=== PATIENT | male | born 1970 | race Caucasian/White ===

== ENCOUNTER 2018-01-24 02:12 | Emergency (ER) | payer MEDICAID, OTHER ==
[2018-01-24 02:46] VITALS: BP 211/109
[2018-01-24] MEDS ORDERED: Acetaminophen/oxyCODONE 325-5 MG Tab PO ONE (02:46)
[2018-01-24] MEDS ORDERED: Clindamycin HCl 150 MG Cap PO ONE (02:46)
--- NOTE | 2018-01-24 02:51 | EDM.PDOC ---
ED HPI GENERAL MEDICAL PROBLEM - General Chief Complaint: ENT Problem Stated Complaint: TOOTHACHE Time Seen by Provider: 01/24/18 02:41 Source of Information: Reports: Patient History Limitations: Reports: No Limitations - History of Present Illness INITIAL COMMENTS - FREE TEXT/NARRATIVE: 47-year-old male attends the ED with severe dental pain gradually worsening over the last week. Currently pain is constant throbbing and pulsating. It radiates towards his right ear down the right side of his throat. Patient states he has multiple dental caries and has had a plenty of his teeth removed almost all of his molars are gone. Current pain is coming from a right upper first bicuspid tooth. No associated fever or chills. Onset: Gradual Onset Date: 01/17/18 Duration: Day(s):, Getting Worse, Waxing/Waning (Initially pain was waxing and waning but now is constant.) Location: Reports: Face (Dental infection) Quality: Reports: Ache, Throbbing, Other Severity: Severe (Pulsation 9 on a 10) Improves with: Reports: Other (He gets relief by swishing water around the tooth every 2-3 minutes.) Worsens with: Reports: None Context: Denies: Activity, Exercise, Lifting, Sick Contact, Trauma, Other Associated Symptoms: Reports: Cough (From smoking) Treatments TEST SPECIALIST: Reports: Acetaminophen, NSAIDS (Motrin.) - Related Data Allergies Allergy/AdvReac Type Severity Reaction Status Date / Time shellfish Allergy Severe Hives Uncoded 01/24/18 02:42 Home Meds: Home Meds Latanoprost [Xalatan 0.005% Ophth Soln] 1 drop EYEBOTH DAILY 03/29/14 [History] Lisinopril 20 mg PO DAILY 03/29/14 [History] metFORMIN HCl [Metformin HCl] 500 mg PO DAILY 03/29/14 [History] Acetaminophen [Tylenol] 650 mg PO Q4H PRN #100 tablet 04/02/14 [Rx] Docusate Sodium [Colace] 100 mg PO BID PRN #60 cap 04/02/14 [Rx] Ibuprofen [Motrin] 400 mg PO Q6H PRN #100 tablet 04/02/14 [Rx] oxyCODONE 5 mg PO Q4H PRN #60 tablet 04/02/14 [Rx] Clindamycin HCl 300 mg PO TID #24 capsule 01/24/18 [Rx] oxyCODONE HCl/Acetaminophen [Percocet 5-325 mg Tablet] 1 - 2 each PO Q4H PRN # 16 tablet 01/24/18 [Rx] Past Medical History HEENT History: Reports: Glaucoma (Currently using eyedrops for this.) Cardiovascular History: Reports: High Cholesterol Gastrointestinal History: Reports: Chronic Constipation Genitourinary History: Reports: None Musculoskeletal History: Reports: Back Pain, Chronic (Currently disabled because of chronic back pain) Endocrine/Metabolic History: Reports: Diabetes, Type II (Controlled with diet and metformin.) Social & Family History - Living Situation & Occupation Living situation: Reports: , Alone Occupation: Disabled ED ROS ENT - Review of Systems Review Of Systems: See Below Constitutional: Reports: Malaise, Weakness, Fatigue (From not being able to sleep.). Denies: Fever, Chills HEENT: Reports: Ear Pain (Ear pain referred from dental pain. Right side), Glasses, Throat Pain (Pain radiates down the right side of his throat at times) . Denies: Hearing Loss, Rhinitis, Sinus Problem Respiratory: Reports: Shortness of Breath, Wheezing (On exertion), Cough ( occasional wheezing) Cardiovascular: Reports: No Symptoms ( productive cough at times ), Blood Pressure Problem (No blood pressure today is 211/109 at rest he states it's usually not this high.). Denies: Chest Pain, Claudication, Orthopnea Endocrine: Reports: Fatigue GI/Abdominal: Reports: No Symptoms : Reports: No Symptoms Musculoskeletal: Reports: Back Pain (Disabling back pain) Skin: Reports: No Symptoms Neurological: Reports: No Symptoms Psychiatric: Reports: No Symptoms Hematologic/Lymphatic: Reports: No Symptoms Immunologic: Reports: No Symptoms ED EXAM, ENT - Physical Exam Exam: See Below Exam Limited By: No Limitations General Appearance: Alert, WD/WN, Mild Distress Eye Exam: Bilateral Eye: Normal Inspection Ears: Normal External Exam, Normal Canal, Normal TMs Mouth/Throat: Dental Pain ( incisors and lower incisors. current pain is coming from the first upper right bicuspid tooth. The gingiva around it is excessively swollen without any obvious abscess that would benefit from drainage. The tooth itself is mildly decayed. ), Other (Patient has numerous dental caries. Particularly upper) Head: Atraumatic, Normocephalic Neck: Normal Inspection, Supple, Non-Tender, Full Range of Motion. No: Lymphadenopathy (L), Lymphadenopathy (R) Course - Vital Signs Last Recorded V/S: Last Vital Signs Temp 36.5 C 01/24/18 02:42 Pulse 78 01/24/18 02:42 Resp 18 01/24/18 02:42 BP 211/109 H 01/24/18 02:42 Pulse Ox 99 01/24/18 02:42 - Orders/Labs/Meds Meds: Medications Discontinued Medications Generic Name Dose Route Start Last Admin Trade Name Joniq PRN Reason Stop Dose Admin Clindamycin HCl 450 mg 01/24/18 02:46 01/24/18 02:53 Cleocin PO 01/24/18 02:47 450 mg ONETIME ONE Administration Oxycodone/Acetaminophen 2 tab 01/24/18 02:46 01/24/18 02:54 Percocet 325-5 Mg PO 01/24/18 02:47 2 tab ONETIME ONE Administration - Radiology Interpretation Free Text/Narrative:: 47-year-old male presents to the ED with severe dental pain. Pain is constant and throbbing is been gradually worsening over the last week. Patient states tonight is unable to get relief of the pain to be able to sleep. Examination reveals marked conjunctival swelling around his upper right first bicuspid tooth which appears to be the culprit tooth. He has multiple other teeth and very poor dental condition with dental caries. Will be clindamycin 450 mg by mouth now and Percocet 2 tablets by mouth now for acute pain relief. Plan will be to place him on clindamycin 150 mg 3 times daily for the next 8 days to clear up dental infection. Also Percocet 16 tablets was given for pain relief. He reports his finances are very limited at present and is unlikely to be able to seek dental management as ideally he needs his tooth extracted to prevent it from becoming reinfected. Departure - Departure Time of Disposition: 02:53 Disposition: Home, Self-Care 01 Condition: Fair Clinical Impression: Infected dental caries - Discharge Information *PRESCRIPTION DRUG MONITORING PROGRAM REVIEWED*: No *COPY OF PRESCRIPTION DRUG MONITORING REPORT IN PATIENT PRIETO: No Prescriptions: Clindamycin HCl 300 mg PO TID #24 capsule oxyCODONE HCl/Acetaminophen [Percocet 5-325 mg Tablet] 1 - 2 each PO Q4H PRN # 16 tablet PRN Reason: pain relief. Instructions: Dental Abscess, [id number] Referrals: PCP,None [Primary Care Provider] - Forms: ED Department Discharge Additional Instructions: Evaluation the emergent tonight in regards to severe dental pain coming from right upper first bicuspid tooth. The gingiva or gums around the tooth are markedly swollen indicating underlying infection. Nothing evident that would benefit from drainage. Usually the abscess or infection is at the root of the tooth. The only cure is to have the tooth extracted. Treated in the ED with antibiotic clindamycin 450 mg given now. Percocet tabs 5/3/25 2 for pain relief which will ease up pain over the next hour. Prescription written for clindamycin 300 mg 3 times daily for the next 8 days to clear up dental infection. Percocet tabs 5/325 mg one or 2 every 4-6 hours as needed for pain relief in combination with Motrin 600 mg every 6 hours or alternatively Aleve 2 tablets every 8 hours to reduce pain and inflammation. Ideally you need to follow-up with a dentist of his tooth extracted to prevent it from recurrently becoming infected.
== END 2018-01-24 03:01 | disposition home or self-care (01) ==
LOC: JD.ED 02:12
DX: K02.9 Dental caries, unspecified (principal); Z79.84 Long term (current) use of oral hypoglycemic drugs; Z79.899 Other long term (current) drug therapy; E11.9 Type 2 diabetes mellitus without complications; Z91.013 Allergy to seafood
CPT/HCPCS: 99283; A9270